=== PATIENT | female | born 1960 | race Asian ===

== ENCOUNTER 2016-09-04 10:04 | Emergency (ER) | payer BC, OTHER ==
[2016-09-04 10:14] VITALS: TEMP 97.4; BMI 22.3
[2016-09-04] MEDS ORDERED: SODIUM CHLORIDE 0.9% 10 ML FLUSH FLUSH PRN (10:33)
[2016-09-04] MEDS ORDERED: NS 1,000 ML IV ONE (10:34)
[2016-09-04 10:45] LABS: AUTOMATED BASOPHIL 0.4 % (0-2); AUTOMATED EOSINOPHIL 2.3 % (0-5); AUTOMATED LYMPH 40.7 % (17-44); AUTOMATED MONOCYTE 4.7 % (3-10); AUTOMATED NEUTROPHIL 51.9 % (45-76); MPV 8.9 fL (7.4-10.4)
--- NOTE | 2016-09-04 10:51 | EDPRACDOC ---
- General Information Chief Complaint: Generalized Weakness Stated Complaint: WEAKNESS Time Seen by Provider: 09/04/16 10:28 Information Source: Patient Mode Of Arrival: Ambulance Home Medications: Home Medications [facility]-3 Fatty Acids/Fish Oil [Fish Oil 1,000 mg Capsule] 1 each PO BID 03/23/15 Ciprofloxacin HCl [Cipro] 500 mg PO BID #20 tab 09/04/16 Meclizine HCl [Antivert] 25 mg PO Q6 #40 tab 09/04/16 Ondansetron HCl [Zofran] 4 mg PO Q6H PRN #20 tab 09/04/16 Allergies/Adverse Reactions: Allergies Allergy/AdvReac Type Severity Reaction Status Date / Time No Known Allergies Allergy Verified 09/04/16 10:10 - History of Present Illness Onset: today Exact Onset of Symptoms: Unknown HPI: PT PRESENTS TODAY WITH WEAKNESS, ROCHE, DIZZINESS AND IRWIN X 6 HOURS. PT STATES SHE WAS FEELING FINE YESTERDAY AND ABOUT 3 AM SHE WENT TO THE BATHROOM AND WAS TOO WEAK TO STAND FROM THE TOILET. STATES HE HAD TO HELP HER BACK TO BED. STATES SHE HAS RECENTLY BEEN SICK WITH A SINUS INFECTION. NO APPARENT DISTRESS. PMH OF HEP C AND ONLY MEDICATION IS FISH OIL. UNSURE OF ETIOLOGY OF HEP C. Symptoms Started: Reports: Gradually Symptoms Description: Constant Weakness: Bilateral: Generalized Symptoms: Reports: Weak Symptom Severity: Reports: Unable to performs ADL's Associated signs and symptoms:: Reports: Headache ED Past Medical History - History Reviewed Yes Nurses notes reviewed and agree except as marked - Patient Medical History Psychological History: Denies: Depression Additional Past Medical History: PRIOR HEPATITIS B INFECTION Surgical History: Reports: Cholecystectomy - Social Medical History Smoking Status: Never smoker EDM Review of Systems - Review of Systems ROS Negative Except as Marked: Yes All systems reviewed and were negative except as marked Constitutional: Fatigue, Weakness Eyes: No Symptoms Reported Ears: No Symptoms Reported Throat: No Symptoms Reported Nose: Congestion Respiratory: Shortness of Breath Cardiovascular: No Symptoms Reported Gastrointestinal: No Symptoms Reported Neurological: Dizziness, Headache, Weakness Musculoskeletal: No Symptoms Reported Integumentary: No Symptoms Reported - Physical Exam Constitutional: No apparent distress, Alert (Awake), Well nourished, Well appearing Oriented to: Time, Person, Place Last recorded Vital Signs: Last Vital Signs Temp 97.4 F L 09/04/16 10:10 Pulse 75 09/04/16 10:41 Resp 18 09/04/16 10:41 BP 128/79 09/04/16 10:41 Pulse Ox 99 09/04/16 10:41 Oxygen Pulse Oxygen Saturation 99 O2 Device Room Air Oxygen Flow Rate Fraction of Inspired Oxygen ( FIO2) - HEENT Head: Normal Eye Exam: Normal Oropharynx: Normal Tympanic Membrane: Normal ENT EAC: Normal Nose: No Symptoms Reported Neck: Normal, Denies Pain, Midline - Respiratory/Cardiovascular Respiratory: Normal - CTA Cardiovascular: Normal - GI Palpation: Normal Tenderness: Non tender - Musculoskeletal Back: Normal Extremities: Normal - Integumentary Skin: Normal Lymphatics: Normal - Neurologic Cerebellar: Normal Mood Description: Normal Thought: Coherent Perception: Normal - Re-evaluation Re-evaluation 1 Re-evaluation Time: 12:31 PT STATES SHE FEELS SOMEWHAT BETTER, BUT STILL VERY DIZZY. - Results 09/04/16 10:15 09/04/16 10:15 - EKG EKG #1 EKG Time: 10:39 -: Yes EKG interpreted by me Rate: bpm: 75 Drake: Normal Rhythm: NSR Block: None Hypertrophy: None ST: Normal Decision Time to Discharge: 12:31 - Departure Disposition: Home Condition: Stable Final Diagnosis: Attacks of weakness BPPV (benign paroxysmal positional vertigo) Qualifiers: Laterality: unspecified laterality Qualified Code(s): H81.10 - Benign paroxysmal vertigo, unspecified ear Urinary tract infection Qualifiers: Urinary tract infection type: acute cystitis Hematuria presence: without hematuria Qualified Code(s): N30.00 - Acute cystitis without hematuria Instructions: Urinary Tract Infection in Women (ED), Benign Paroxysmal Positional Vertigo (ED) Education/Counseling Given To: Patient Education/Counseling Given Regarding: Diagnosis, Treatment, Follow Up Referrals: Prasad Kay MD [Primary Care Provider] - One Week Prescriptions: Ciprofloxacin HCl [Cipro] 500 mg PO BID #20 tab Meclizine HCl [Antivert] 25 mg PO Q6 #40 tab Ondansetron HCl [Zofran] 4 mg PO Q6H PRN #20 tab PRN Reason: Nausea/Vomiting Additional Instructions: DRINK PLENTY OF WATER TO KEEP BLADDER CLEAN. USE THE EXERCISE SHEET TO TRY AND RELIEVE SYMPTOMS OF VERTIGO.
[2016-09-04 10:55] LABS: BLOOD UREA NITROGEN 16 MG/DL (7-17); CALCIUM 9.7 MG/DL (8.4-10.2); CALCULATED OSMOLALITY 275 MOs/Kg (270-290); CHLORIDE 104 mEq/L (98-107); GLUCOSE 124 MG/DL (70-99); SODIUM LEVEL 142 mEq/L (137-146); TOTAL PROTEIN 7.8 G/DL (6.3-8.2)
--- NOTE | 2016-09-04 10:57 | DIRPT ---
CLINICAL DATA: Chest pain EXAM: PORTABLE CHEST 1 VIEW COMPARISON: Chest x-ray dated 03/23/2015. FINDINGS: The heart size and mediastinal contours are within normal limits. Both lungs are clear. The visualized skeletal structures are unremarkable. IMPRESSION: Normal chest x-ray. Electronically Signed By: Rufino Orozco M.D. On: 09/04/2016 10:55
[2016-09-04 10:58] LABS: PARTIAL THROMB. TIME 22.1 SEC (22-35)
--- NOTE | 2016-09-04 11:11 | DIRPT ---
CLINICAL DATA: 56-year-old female with headache and dizziness EXAM: CT HEAD WITHOUT CONTRAST TECHNIQUE: Contiguous axial images were obtained from the base of the skull through the vertex without intravenous contrast. COMPARISON: None. FINDINGS: Negative for acute intracranial hemorrhage, acute infarction, mass, mass effect, hydrocephalus or midline shift. Medina-white differentiation is preserved throughout. No acute soft tissue or calvarial abnormality. The globes and orbits are symmetric and unremarkable. Normal aeration of the mastoid air cells and visualized paranasal sinuses. IMPRESSION: Negative head CT. Electronically Signed By: Tico Salinas M.D. On: 09/04/2016 11:08
[2016-09-04] MEDS ORDERED: KETOROLAC TROMETH 30 MG/ML VIAL IV ONE (11:45)
[2016-09-04 11:48] LABS: LEUKOCYTES/URINE TRACE (NEGATIVE); NITRITE/URINE NEG (NEGATIVE); URINE OCCULT BLOOD NEG (NEG/TRACE)
[2016-09-04 11:54] LABS: RBC/URINE 0-2 (0-5)
[2016-09-04 11:55] LABS: AMORPHOUS 2+
[2016-09-04] MEDS ORDERED: MECLIZINE 25 MG TAB PO ONE (12:26)
[2016-09-04 12:41] VITALS: BP 119/72; PULSE 95
== END 2016-09-04 12:50 | disposition home or self-care (01) ==
LOC: ED 10:04
DX: H81.10 Benign paroxysmal vertigo, unspecified ear (principal); N30.00 Acute cystitis without hematuria; R53.1 Weakness; R51 Headache
CPT/HCPCS: 36415; 70450; 71010; 80053; 81001; 84484; 85025; 85610; 85730; 87804; 93005; 96360; 99285; J3490; J1885